=== PATIENT | male | born 1930 | race Caucasian/White ===

== ENCOUNTER 2017-03-26 12:03 | Emergency (ER) | payer MEDICARE, OTHER ==
[2017-03-26 13:12] LABS: Hematocrit 36.1 % (42.0-52.0); Hemoglobin 11.7 gm/dL (13.5-18.0); Mean Cell Volume 91.6 fl (78-100); Mean Corpuscular Hemoglobin 29.7 pg (27-31); Mean Corpuscular Hgb Conc 32.4 g/dl (32-36); Mean Platelet Volume 10.7 fl (6.0-9.5); Platelet Count 166 K/mm3 (150-450); Red Blood Count 3.94 M/mm3 (4.7-6.0); Red Cell Distribution Width 14.2 % (11.5-14.0); White Blood Count 6.3 K/mm3 (4.0-10.5)
[2017-03-26 13:33] LABS: ALT 15 U/L (19-67); AST 21 U/L (0-48); Albumin * 3.2 gm/dl (3.4-5.0); Alkaline Phosphatase * 124 U/L (50-170); Anion Gap 8.5 mmol/L (6.8-13.8); BNP * 1388 pg/mL (5-650); BUN/Creatinine Ratio 16.3 (9.0-21.6); Bilirubin, Total 1.3 mg/dL (0.0-1.1); Blood Urea Nitrogen 25 mg/dL (6-23); Ca. Corrected For Albumin 9.1 mg/dL (8.4-10.2); Calcium * 8.8 mg/dL (7.9-10.9); Carbon Dioxide 34.8 mmol/L (24-32.6); Chloride 100 mmol/L (97-106); Glucose * 116 mg/dL (70-110); Potassium 3.3 mmol/L (3.4-4.6); Sodium 140 mmol/L (132-142); Troponin I Less than 0.017 ng/ml (0.00-0.10)
--- NOTE | 2017-03-26 13:33 | ERNOTE ---
Dyspnea - General Presenting Symptoms: shortness of breath Time Seen by Provider: 03/26/17 12:54 Source: patient Exam Limitations: no limitations - Immun/Allergies/Home Medications Immunizations: IMMUNIZATION HX Immunizations Up to Date Yes History of Influenza Vaccine Yes Hx Pneumococcal Vaccination Yes Allergies/Adverse Reactions: Allergies Penicillins Allergy (Verified 03/26/17 12:19) adhesive tape Adverse Reaction (Verified 03/26/17 12:19) Home Medications: HOME MEDICATIONS Allopurinol [Zyloprim (Allopurinol)] 100 mg PO DAILY 05/23/16 [Last Taken Unknown] Aspirin [Aspirin EC] 81 mg PO DAILY 05/23/16 [Last Taken Unknown] Carvedilol [Coreg] 3.125 mg PO BID 05/23/16 [Last Taken Unknown] Cholecalciferol [Vitamin D] 1,000 unit PO DAILY 05/23/16 [Last Taken Unknown] Cyanocobalamin [Vitamin B-12] 1,000 mcg PO DAILY 05/23/16 [Last Taken Unknown] Docusate Sodium [Colace] 100 mg PO DAILY PRN 05/23/16 [Last Taken Unknown] Ferrous Sulfate [Iron Supplement] 325 mg PO DAILY 05/23/16 [Last Taken Unknown] Finasteride [Proscar] 5 mg PO DAILY 05/23/16 [Last Taken Unknown] Furosemide [Lasix] 40 mg PO BID 05/23/16 [Last Taken Unknown] Magnesium Oxide [Magnesium] 400 mg PO DAILY 05/23/16 [Last Taken Unknown] Metolazone [Zaroxolyn] 5 mg PO DAILY@1100 05/23/16 [Last Taken Unknown] Midodrine HCl 5 mg PO DAILY 05/23/16 [Last Taken Unknown] Nitroglycerin [Nitrostat] 0.4 mg SL Q5MIN PRN 05/23/16 [Last Taken Unknown] Omeprazole Magnesium [Prilosec Otc] 40 mg PO DAILY 05/23/16 [Last Taken Unknown] Potassium Chloride [Klor-Con 10] 10 meq PO BID 05/23/16 [Last Taken Unknown] Simvastatin [Zocor] 20 mg PO HS 05/23/16 [Last Taken Unknown] Tamsulosin HCl [Flomax] 0.4 mg PO DAILY@1800 05/23/16 [Last Taken Unknown] Triamcinolone Acetonide [Nasacort] 1 spray NS HS 05/23/16 [Last Taken Unknown] Warfarin Sodium [Coumadin] 2.5 mg PO DAILY 05/23/16 [Last Taken Unknown] clonazePAM [Klonopin] 0.5 mg PO DAILY 05/23/16 [Last Taken Unknown] Albuterol Sulfate [Proair Hfa] 2 puff IH Q4H PRN #1 inhaler 03/26/17 [Last Taken Unknown] - History of Present Illness Narrative: Patient is here for a persistent cough he has had for about a month.It is mainly dry, occasionally clear phlegm, denies chest pain, no fever. He gets short of breath with talking, sometimes with walking, has been progressively short of breath for a long time. He has a history of CHF,CAD, no history of COPD. Initiating event: Denies: upper resp illness, out of meds Review of Systems - Review of Systems Constitutional: Absent: recent illness, fever ENT: Absent: nose pain, nose congestion, sore throat Respiratory: Present: See HPI, shortness of breath, cough Cardiology: Absent: chest pain, palpitations Gastrointestinal/Abdominal: Absent: nausea, vomiting, abdominal pain Genitourinary: Present: no symptoms reported Musculoskeletal: Absent: back pain Neurological: Absent: headache, weakness, numbness - Patient's Past Medical History Patient History - Medical: Arthritis, Other Patient History - Cardiac/Respiratory: CHF, Hypertension, Myocardial Infarction , Valvular Heart Disease Patient History - Cancer: No Hx of Cancer Patient History - Surgical Procedures: Cardiac stent, Pacemaker, Other Patient History - Other: None - Social History Living Situations: home Abuse History: No History of abuse Psych History: No pertinent hx Smoking Status: Never smoker Alcohol Use: none Drug Use: none - Immunizations Immunizations Up to Date: Yes Hx Pneumococcal Vaccination: Yes History of Influenza Vaccine: Yes Physical Exam - Physical Exam General Appearance: Present: wd/wn, alert, no apparent distress Eye Exam: Normal inspection: bilateral, PERRL: bilateral Ears, Nose, Throat: Present: normal pharynx Respiratory: Present: no respiratory distress, no accessory muscle use, chest nontender, lungs clear, decreased breath sounds Cardiovascular/Chest: Present: regular rate, rhythm, no murmur Gastrointestinal/Abdominal: Present: nontender Extremity Exam: Present: no edema Neurological Exam: Present: alert, oriented, normal mood/affect Skin Exam: Present: normal color, warm/dry ED Progress - Results and Orders Patient's Lab Results:: I have reviewed the patient's lab results. - Vital Signs Patient's Vital Signs:: I have reviewed the patient's vital signs. Vital Signs: Vital Signs 03/26/17 12:10 Temperature 36.7 C Pulse Rate 73 Respiratory 21 H Rate Blood Pressure 136/69 O2 Sat by Pulse 95 Oximetry - EKG EKG: unchanged from - 05/20/16, other - pacemaker EKG EKG read: Interp. by me - X-Ray X-Ray #1 X-Ray: chest - no acute changes Interpretation: Reviewed by me - Progress/Reassessment Chief Complaint: Dyspnea Progress Note-Subjective: 03/26/17 14:39 explained test results to patient and 03/26/17 15:15 patient not sure whether breathing treatment made a difference, no coughing currently Departure Clinical Impression: Bronchitis - Departure Disposition: Home self-care Condition: Good Instructions: Acute Bronchitis, [id number] Additional Instructions: try the inhaler if you feel like the breathing treatment has helped your cough call your doctor for follow up consider following up with your heart doctor (Dr Linder) as well Referrals: Pop Peterson MD [Primary Care Provider] - Prescriptions: Albuterol Sulfate [Proair Hfa] 2 puff IH Q4H PRN #1 inhaler PRN Reason: Shortness Of Breath
[2017-03-26] MEDS ORDERED: ALBUTEROL SULFATE 2.5 MG/3 ML VIAL.NEB IH ONE (14:39)
[2017-03-26] MEDS ORDERED: ALBUTEROL SULFATE 2.5 MG/0.5 ML VIAL.NEB IH ONE (14:55)
[2017-03-26 15:28] VITALS: BP 124/70
== END 2017-03-26 15:28 | disposition home or self-care (01) ==
LOC: ER 12:03
DX: J20.9 Acute bronchitis, unspecified (principal); M19.90 Unspecified osteoarthritis, unspecified site; I50.9 Heart failure, unspecified; I10 Essential (primary) hypertension; I25.2 Old myocardial infarction

== ENCOUNTER 2017-04-21 19:23 | Emergency (ER) | payer MEDICARE, OTHER ==
--- NOTE | 2017-04-21 20:37 | ERNOTE ---
Lower Extremity HPI - General Lower Extremities Pain: knee: right Time Seen by Provider: 04/21/17 20:11 Source: patient Exam Limitations: no limitations - Immun/Allergies/Home Medications Immunizations: IMMUNIZATION HX Immunizations Up to Date Yes History of Influenza Vaccine Yes Hx Pneumococcal Vaccination Yes Allergies/Adverse Reactions: Allergies Allergy/AdvReac Type Severity Reaction Status Date / Time Penicillins Allergy Verified 04/21/17 19:38 adhesive tape AdvReac Verified 04/21/17 19:38 Home Medications: HOME MEDICATIONS Allopurinol [Zyloprim] 300 mg PO DAILY 04/21/17 [Last Taken Unknown] Aspirin [Aspirin EC] 81 mg PO DAILY 04/21/17 [Last Taken Unknown] Carvedilol [Coreg] 3.125 mg PO BID 04/21/17 [Last Taken Unknown] Doxycycline Hyclate [Vibratab] 100 mg PO DAILY 04/21/17 [Last Taken Unknown] Ferrous Sulfate [Iron] 325 mg PO BID 04/21/17 [Last Taken Unknown] Finasteride [Proscar] 5 mg PO DAILY 04/21/17 [Last Taken Unknown] Furosemide [Lasix] 40 mg PO BID 04/21/17 [Last Taken Unknown] Levothyroxine Sodium [Synthroid] 50 mcg PO DAILY 04/21/17 [Last Taken Unknown] Magnesium Oxide [Magnesium] 400 mg PO BID 04/21/17 [Last Taken Unknown] Metolazone [Zaroxolyn] 5 mg PO 2XW 04/21/17 [Last Taken Unknown] Midodrine HCl 5 mg PO BID 04/21/17 [Last Taken Unknown] Multivitamin [One Daily Multivitamin] 1 each PO DAILY 04/21/17 [Last Taken Unknown] Nitroglycerin [Nitrostat] 0.4 mg SL Q5MIN PRN 04/21/17 [Last Taken Unknown] Omeprazole Magnesium [Prilosec Otc] 20 mg PO DAILY 04/21/17 [Last Taken Unknown] Polyethylene Glycol 3350 [Miralax] 17 gm PO HS 04/21/17 [Last Taken Unknown] Potassium Chloride [Klor-Con M10] 10 meq PO BID 04/21/17 [Last Taken Unknown] Potassium Chloride [Klor-Con M10] 20 meq PO DAILY 04/21/17 [Last Taken Unknown] Simvastatin [Zocor] 20 mg PO HS 04/21/17 [Last Taken Unknown] Tamsulosin HCl [Flomax] 0.4 mg PO DAILY 04/21/17 [Last Taken Unknown] Triamcinolone Acetonide [Nasacort] 1 spray NS HS 04/21/17 [Last Taken Unknown] Warfarin Sodium [Coumadin] 4 mg PO DAILY 04/21/17 [Last Taken Unknown] clonazePAM [Klonopin] 0.25 mg PO DAILY 04/21/17 [Last Taken Unknown] clonazePAM [Klonopin] 0.5 mg PO HS 04/21/17 [Last Taken Unknown] - History of Present Illness Narrative: Pt states he has had problems with infection in his right knee 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 He has been on prophylactic doxcycline since. Lately it has been bothering him more and he saw his PCP approx one month ago and was placed on clindamycin for 10 days in addition to his doxycycline. He remains on doxycycline and today he suddenly had pain in his leg and knee and redness to his knee and front of his leg. He has trouble even bearing weight since this afternoon. Occurred: this afternoon Method of Injury: Reports: unknown Modifying Factors - (Worsens): Reports: movement - weight bearing Associated Symptoms: Reports: unable to bear weight Prior Treament: Reports: recently seen, treated by physician - one month ago Review of Systems - Review of Systems Constitutional: Absent: recent illness, fever, chills, diaphoresis EYE: Present: no symptoms reported ENT: Present: no symptoms reported Respiratory: Absent: shortness of breath Cardiology: Absent: chest pain Gastrointestinal/Abdominal: Absent: nausea Genitourinary: Present: no symptoms reported Musculoskeletal: Present: See HPI. Absent: back pain Skin: Present: See HPI, change in color Neurological: Absent: numbness, tingling Endocrine: Absent: excessive sweating, flushing Hematologic/Lymphatic: Present: no symptoms reported Psych: Present: no symptoms reported - Patient's Past Medical History Patient History - Medical: Arthritis, Other - "Infection in right knee" Patient History - Cardiac/Respiratory: CHF, Hypertension, Myocardial Infarction , Valvular Heart Disease Patient History - Cancer: No Hx of Cancer Patient History - Surgical Procedures: Cholecystectomy, Cardiac stent, Pacemaker , Total Knee Replacement, Other Patient History - Other: None - Social History Living Situations: home Abuse History: No History of abuse Psych History: No pertinent hx Smoking Status: Never smoker Alcohol Use: none Drug Use: none - Immunizations Immunizations Up to Date: Yes Hx Pneumococcal Vaccination: Yes History of Influenza Vaccine: Yes Physical Exam - Physical Exam General Appearance: Present: wd/wn, alert, no apparent distress Head Exam: Present: normal inspection, no evidence of injury Eye Exam: Normal inspection: bilateral Neck: Present: normal inspection, supple Respiratory: Present: no respiratory distress, no accessory muscle use Back Exam: Present: normal inspection, no CVA tenderness, no vertebral tenderness Extremity Exam: Present: normal except - - right knee, decreased range of motion - of right knee, joint redness - mild erythema in the sup/lat corner of the right knee, joint swelling - Joint effusion appears to be present, extremity edema - +1 right leg, other - right leg from mid thigh to ankle is much warmer than left leg Skin Exam: Present: other - mild erythema to left anterior leg without sharp boarders ED Progress - Results and Orders Patient's Lab Results:: I have reviewed the patient's lab results. Results and Orders: Laboratory Tests 04/21/17 04/21/17 04/21/17 20:39 20:39 20:39 WBC 7.1 Hgb 12.0 L Hct 37.7 L Plt Count 168 Neutrophils % 79.3 H ESR 41 H D-Dimer C-Reactive Prot, Quant 4.6 H 04/21/17 20:39 WBC Hgb Hct Plt Count Neutrophils % ESR D-Dimer 5.31 H C-Reactive Prot, Quant - Vital Signs Patient's Vital Signs:: I have reviewed the patient's vital signs. Vital Signs: Vital Signs 04/21/17 19:31 Temperature 37.0 C Pulse Rate 77 Respiratory 18 Rate Blood Pressure 131/70 O2 Sat by Pulse 97 Oximetry - X-Ray X-Ray #1 X-Ray: knee Interpretation: Reviewed by me X-ray Comments: IMPRESSION: NO ACUTE OSSEOUS PATHOLOGY IDENTIFIED. SOME LUCENCY ABOUT THE TIBIAL COMPONENT OF THE PROSTHESIS NONSPECIFIC. FOLLOW-UP CLINICALLY INDICATED. Electronically signed by Ward Mcdaniel M.D.. - Progress/Reassessment Chief Complaint: Lower Extremity Pain/ Injury Progress Note-Subjective: 04/22/17 00:29 04/21/17 22:45 Spoke with Kemal Hein PA-C orthopedics he feels that there is nothing more we could do for him here as he has already been referred to the [facility]. 22:50 Called the [facility], they will call me back 23:[address] Kalee Renee Orthopedics at [facility], she would like to see the x-rays and will call me back. 00:01 Received call back from Dr. Renee she would like to see the patient tonight. Transfer arrangements being made. 00:25 Spoke to the ED physician at [facility] as he will initially accept the patient he agrees with transfer. 00:35 Pt left the ED per [facility] ambulance in stable and satisfactory condition Departure Clinical Impression: Septic joint of right knee joint Qualifiers: Septic arthritis organism: due to unspecified organism Qualified Code(s): M00.9 - Pyogenic arthritis, unspecified - Departure Disposition: [facility] Condition: Fair Referrals: Pop Peterson MD [Primary Care Provider] -
[2017-04-21 20:39] LABS: Hematocrit 37.7 % (42.0-52.0); Mean Cell Volume 91.5 fl (78-100); Mean Corpuscular Hemoglobin 29.1 pg (27-31); Mean Corpuscular Hgb Conc 31.8 g/dl (32-36); Mean Platelet Volume 11.8 fl (6.0-9.5); Neutrophil # 5.6 K/mm3 (1.3-6.0); Neutrophil % 79.3 % (42-75.0); Platelet Count 168 K/mm3 (150-450); Red Blood Count 4.12 M/mm3 (4.7-6.0); Red Cell Distribution Width 14.6 % (11.5-14.0); White Blood Count 7.1 K/mm3 (4.0-10.5)
[2017-04-22 00:08] VITALS: BP 123/74
== END 2017-04-22 00:39 | disposition short-term general hospital (02) ==
LOC: ER 19:23
DX: M00.9 Pyogenic arthritis, unspecified (principal); M19.90 Unspecified osteoarthritis, unspecified site; I50.9 Heart failure, unspecified; I10 Essential (primary) hypertension; I25.2 Old myocardial infarction; Z89.9 Acquired absence of limb, unspecified

== ENCOUNTER 2017-05-04 18:54 | Emergency (ER) | payer MEDICARE, OTHER ==
[2017-05-04 19:06] VITALS: BP 114/47
== END 2017-05-04 19:12 | disposition left against medical advice (07) ==
LOC: ER 18:54
DX: Z53.21 Procedure and treatment not carried out due to patient leaving prior to being seen by health care provider (principal)

== ENCOUNTER 2017-08-04 09:31 | Emergency (ER) | payer MEDICARE, OTHER ==
[2017-08-04] MEDS ORDERED: ASPIRIN 81 MG TAB.CHEW PO ONE (09:48)
--- NOTE | 2017-08-04 09:53 | ERNOTE ---
Chest Pain/Cardiac HPI Chief Complaint: Chest Pain Time Seen by Provider: 08/04/17 09:42 Source: patient Exam Limitations: no limitations Immunizations: IMMUNIZATION HX Immunizations Up to Date Yes History of Influenza Vaccine Yes Hx Pneumococcal Vaccination Yes Allergies/Adverse Reactions: Allergies Penicillins Allergy (Verified 08/04/17 09:48) adhesive tape Adverse Reaction (Verified 08/04/17 09:48) Home Medications: HOME MEDICATIONS Allopurinol [Zyloprim] 300 mg PO DAILY 04/21/17 [Last Taken Unknown] Aspirin [Aspirin EC] 81 mg PO DAILY 04/21/17 [Last Taken Unknown] Carvedilol [Coreg] 3.125 mg PO BID 04/21/17 [Last Taken Unknown] Doxycycline Hyclate [Vibratab] 100 mg PO DAILY 04/21/17 [Last Taken Unknown] Ferrous Sulfate [Iron] 325 mg PO BID 04/21/17 [Last Taken Unknown] Finasteride [Proscar] 5 mg PO DAILY 04/21/17 [Last Taken Unknown] Furosemide [Lasix] 40 mg PO BID 04/21/17 [Last Taken Unknown] Levothyroxine Sodium [Synthroid] 50 mcg PO DAILY 04/21/17 [Last Taken Unknown] Magnesium Oxide [Magnesium] 400 mg PO BID 04/21/17 [Last Taken Unknown] Metolazone [Zaroxolyn] 5 mg PO 2XW 04/21/17 [Last Taken Unknown] Midodrine HCl 5 mg PO BID 04/21/17 [Last Taken Unknown] Multivitamin [One Daily Multivitamin] 1 each PO DAILY 04/21/17 [Last Taken Unknown] Nitroglycerin [Nitrostat] 0.4 mg SL Q5MIN PRN 04/21/17 [Last Taken Unknown] Omeprazole Magnesium [Prilosec Otc] 40 mg PO DAILY 04/21/17 [Last Taken Unknown] Polyethylene Glycol 3350 [Miralax] 17 gm PO HS 04/21/17 [Last Taken Unknown] Potassium Chloride [Klor-Con M10] 10 meq PO BID 04/21/17 [Last Taken Unknown] Potassium Chloride [Klor-Con M10] 20 meq PO DAILY@1200 04/21/17 [Last Taken Unknown] Simvastatin [Zocor] 20 mg PO HS 04/21/17 [Last Taken Unknown] Tamsulosin HCl [Flomax] 0.4 mg PO DAILY 04/21/17 [Last Taken Unknown] Triamcinolone Acetonide [Nasacort] 1 spray NS HS 04/21/17 [Last Taken Unknown] Warfarin Sodium [Coumadin] 4 mg PO DAILY 04/21/17 [Last Taken Unknown] clonazePAM [Klonopin] 0.25 mg PO DAILY@1200 04/21/17 [Last Taken Unknown] clonazePAM [Klonopin] 0.5 mg PO HS 04/21/17 [Last Taken Unknown] Cephalexin [Keflex] 500 mg PO TID 06/25/17 [Last Taken Unknown] Cholecalciferol (Vitamin D3) [Vitamin D3] 2,000 unit PO DAILY 06/25/17 [Last Taken Unknown] Montelukast Sodium [Singulair] 10 mg PO DAILY 06/25/17 [Last Taken Unknown] Narrative: Patient states that he's been having increased indigestion, he notices a fullness in the lower chest area after eating that is resolved by belching. He denies any neck or arm or jaw pain or diaphoresis, however he was concerned because he has had open heart surgery and cardiac stents placed in the past. Symptoms have been going on for approximately a week he states. Timing: intermittent Severity/Quality: mild, ingestion - actually indigestion Location: central Chest Pain Radiation: no radiation Activities at Onset: other - eating Modifying Factors - Improves: Present: other - belching Modifying Factors - Worsens: Present: nothing Nitro Today/Relief: no nitro taken today Aspirin Treatment Today: 81 mg x 4, provided by ED Associated Symptoms: Present: denies symptoms Prior Chest Pain/Cardiac Workup: Reports: prior chest pain Review of Systems - Review of Systems Constitutional: Present: See HPI EYE: Present: no symptoms reported ENT: Present: no symptoms reported Respiratory: Present: no symptoms reported Cardiology: Present: See HPI Gastrointestinal/Abdominal: Present: no symptoms reported Genitourinary: Present: no symptoms reported Musculoskeletal: Present: no symptoms reported Skin: Present: no symptoms reported Neurological: Present: no symptoms reported Endocrine: Present: no symptoms reported Hematologic/Lymphatic: Present: no symptoms reported Psych: Present: no symptoms reported - Patient's Past Medical History Patient History - Medical: Arthritis, Other Patient History - Cardiac/Respiratory: Coronary Heart Disease, CHF, Hypertension , Myocardial Infarction, Valvular Heart Disease Patient History - Cancer: No Hx of Cancer Patient History - Surgical Procedures: Angioplasty, Cholecystectomy, Coronary Bypass Surgery, Cardiac stent, Pacemaker, Total Knee Replacement, Other, Orthopedic Patient History - Other: None - Social History Abuse History: No History of abuse Psych History: No pertinent hx Smoking Status: Former smoker - Immunizations Immunizations Up to Date: Yes Hx Pneumococcal Vaccination: Yes History of Influenza Vaccine: Yes Physical Exam - Physical Exam General Appearance: Present: wd/wn, alert, no apparent distress Eye Exam: Normal inspection: bilateral, PERRL: bilateral Ears, Nose, Throat: Present: normal ENT inspection, H, normal pharynx Neck: Present: normal inspection, nontender Respiratory: Present: no respiratory distress, normal breath sounds, no accessory muscle use, chest nontender, lungs clear Cardiovascular/Chest: Present: regular rate, rhythm, no murmur, normal peripheral pulses Gastrointestinal/Abdominal: Present: normal bowel sounds, nontender, nondistended, soft, no organomegaly Rectal Exam: Present: deferred Back Exam: Present: normal inspection, normal range of motion Extremity Exam: Present: normal inspection, non-tender, no edema, normal range of motion Neurological Exam: Present: alert, oriented, normal mood/affect Skin Exam: Present: normal color, warm/dry Lymphatic Exam: Present: no adenopathy ED Progress - Results and Orders Patient's Lab Results:: I have reviewed the patient's lab results. - Vital Signs Patient's Vital Signs:: I have reviewed the patient's vital signs. Vital Signs: Vital Signs 08/04/17 09:32 Temperature 36.3 C L Pulse Rate 80 Respiratory 14 Rate Blood Pressure 140/71 O2 Sat by Pulse 100 Oximetry - EKG EKG: other - paced rhythm unchanged from previous EKG read: Interp. 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 I'm wondering about possible bacterial imbalance in his GI tract because of the chronic use of antibiotics. Previous to this regimen he is on doxycycline and clindamycin, however the clindamycin was stopped approximately 6 weeks ago in favor of cephalexin. I'm going to suggest that the patient go on a probiotic to help ensure good bacterial balance his GI tract. Patient was given information for a reasonable probiotic that he can buy at his pharmacy. Departure Clinical Impression: Indigestion - Departure Disposition: Home self-care Condition: Good Instructions: Indigestion, [id number] Additional Instructions: Discuss a good probiotic with her pharmacist at [facility] Referrals: Pop Peterson MD [Primary Care Provider] -
[2017-08-04] MEDS ORDERED: ASPIRIN 81 MG TAB.CHEW ONE (10:02)
[2017-08-04 10:17] LABS: Hematocrit 39.4 % (42.0-52.0); Hemoglobin 12.4 gm/dL (13.5-18.0); Mean Cell Volume 89.7 fl (78-100); Mean Corpuscular Hemoglobin 28.2 pg (27-31); Mean Corpuscular Hgb Conc 31.5 g/dl (32-36); Mean Platelet Volume 12.5 fl (6.0-9.5); Platelet Count 139 K/mm3 (150-450); Red Blood Count 4.39 M/mm3 (4.7-6.0); Red Cell Distribution Width 15.6 % (11.5-14.0); White Blood Count 5.4 K/mm3 (4.0-10.5)
[2017-08-04 10:19] LABS: Prothrombin Time (Patient) 20.3 Seconds (9.0-11.0)
[2017-08-04 10:20] LABS: Total Cells Counted 100
[2017-08-04 10:31] LABS: ALT 32 U/L (19-67); AST 39 U/L (0-48); Albumin * 3.4 gm/dl (3.4-5.0); Alkaline Phosphatase * 137 U/L (50-170); Anion Gap 8.9 mmol/L (6.8-13.8); BUN/Creatinine Ratio 21.7 (9.0-21.6); Bilirubin, Total 1.7 mg/dL (0.0-1.1); Blood Urea Nitrogen 31 mg/dL (6-23); Ca. Corrected For Albumin 9.6 mg/dL (8.4-10.2); Calcium * 9.4 mg/dL (7.9-10.9); Carbon Dioxide 34.6 mmol/L (24-32.6); Chloride 100 mmol/L (97-106); Glucose * 174 mg/dL (70-110); Potassium 3.5 mmol/L (3.4-4.6); Sodium 140 mmol/L (132-142); Total Protein 7.2 gm/dL (6.2-8.2)
[2017-08-04 10:32] LABS: Troponin I Less than 0.017 ng/ml (0.00-0.10)
[2017-08-04 10:33] LABS: Band 4 % (0-2.0); Lymphocyte 9 % (20-51); Monocyte 3 % (0-9); Neutrophil 84 % (42-75); Neutrophil # 4.5 K/mm3 (1.3-6.0)
[2017-08-04 10:34] LABS: Platelet Estimate Normal (NORMAL); RBC Morphology Normal (NORMAL)
[2017-08-04 10:35] LABS: INR 2.02 INR (0.90-1.10)
[2017-08-04 11:04] VITALS: BP 144/80
== END 2017-08-04 11:18 | disposition home or self-care (01) ==
LOC: ER 09:31
DX: K30 Functional dyspepsia (principal); Z95.5 Presence of coronary angioplasty implant and graft; I25.2 Old myocardial infarction; Z87.891 Personal history of nicotine dependence; Z95.0 Presence of cardiac pacemaker; R07.89 Other chest pain

== ENCOUNTER 2017-10-19 12:06 | Emergency (ER) | payer MEDICARE, OTHER ==
[2017-10-19] MEDS ORDERED: METOCLOPRAMIDE HCL 5 MG/ML VIAL IV ONE (12:33)
[2017-10-19] MEDS ORDERED: ORPHENADRINE CITRATE 30 MG/ML VIAL IV ONE (12:33)
[2017-10-19] MEDS ORDERED: diphenhydrAMINE HCL 50 MG/ML VIAL IV ONE (12:33)
[2017-10-19] MEDS ORDERED: diphenhydrAMINE HCL 50 MG/ML VIAL ONE (12:45)
[2017-10-19] MEDS ORDERED: ORPHENADRINE CITRATE 30 MG/ML VIAL ONE (12:45)
[2017-10-19] MEDS ORDERED: METOCLOPRAMIDE HCL 5 MG/ML VIAL ONE (12:46)
[2017-10-19 12:47] LABS: Hematocrit 45.6 % (42.0-52.0); Hemoglobin 14.7 gm/dL (13.5-18.0); Mean Cell Volume 90.5 fl (78-100); Mean Corpuscular Hemoglobin 29.2 pg (27-31); Mean Corpuscular Hgb Conc 32.2 g/dl (32-36); Mean Platelet Volume 12.5 fl (6.0-9.5); Neutrophil # 5.8 K/mm3 (1.3-6.0); Neutrophil % 79.8 % (42-75.0); Platelet Count 181 K/mm3 (150-450); Red Blood Count 5.04 M/mm3 (4.7-6.0); Red Cell Distribution Width 16.1 % (11.5-14.0); White Blood Count 7.3 K/mm3 (4.0-10.5)
[2017-10-19 13:02] LABS: Anion Gap 6.2 mmol/L (6.8-13.8); BUN/Creatinine Ratio 17.6 (9.0-21.6); Bilirubin, Total 1.3 mg/dL (0.0-1.1); Ca. Corrected For Albumin 9.5 mg/dL (8.4-10.2); Calcium * 9.8 mg/dL (7.9-10.9); Carbon Dioxide 37.8 mmol/L (24-32.6); Magnesium 1.9 mg/dL (1.2-2.8); Total Protein 8.4 gm/dL (6.2-8.2)
[2017-10-19] MEDS ORDERED: POTASSIUM CHLORIDE 20 MEQ TABLET.SA PO ONE (13:33)
--- NOTE | 2017-10-19 13:52 | ERNOTE ---
Headache ER HPI - General Presenting Symptoms: headache Time Seen by Provider: 10/19/17 12:26 Source: patient Exam Limitations: no limitations - Immun/Allergies/Home Medications Immunizations: IMMUNIZATION HX Immunizations Up to Date Yes History of Influenza Vaccine Yes Hx Pneumococcal Vaccination Yes Allergies/Adverse Reactions: Allergies Penicillins Allergy (Verified 10/19/17 12:24) adhesive tape Adverse Reaction (Verified 10/19/17 12:24) Home Medications: HOME MEDICATIONS Allopurinol [Zyloprim] 300 mg PO DAILY 04/21/17 [Last Taken Unknown] Aspirin [Aspirin EC] 81 mg PO DAILY 04/21/17 [Last Taken Unknown] Carvedilol [Coreg] 3.125 mg PO BID 04/21/17 [Last Taken Unknown] Doxycycline Hyclate [Vibratab] 100 mg PO DAILY 04/21/17 [Last Taken Unknown] Ferrous Sulfate [Iron] 325 mg PO BID 04/21/17 [Last Taken Unknown] Finasteride [Proscar] 5 mg PO DAILY 04/21/17 [Last Taken Unknown] Furosemide [Lasix] 40 mg PO BID 04/21/17 [Last Taken Unknown] Levothyroxine Sodium [Synthroid] 50 mcg PO DAILY 04/21/17 [Last Taken Unknown] Magnesium Oxide [Magnesium] 400 mg PO BID 04/21/17 [Last Taken Unknown] Metolazone [Zaroxolyn] 5 mg PO 2XW 04/21/17 [Last Taken Unknown] Midodrine HCl 5 mg PO BID 04/21/17 [Last Taken Unknown] Multivitamin [One Daily Multivitamin] 1 each PO DAILY 04/21/17 [Last Taken Unknown] Nitroglycerin [Nitrostat] 0.4 mg SL Q5MIN PRN 04/21/17 [Last Taken Unknown] Omeprazole Magnesium [Prilosec Otc] 40 mg PO DAILY 04/21/17 [Last Taken Unknown] Polyethylene Glycol 3350 [Miralax] 17 gm PO HS 04/21/17 [Last Taken Unknown] Potassium Chloride [Klor-Con M10] 10 meq PO BID 04/21/17 [Last Taken Unknown] Potassium Chloride [Klor-Con M10] 20 meq PO DAILY@1200 04/21/17 [Last Taken Unknown] Simvastatin [Zocor] 20 mg PO HS 04/21/17 [Last Taken Unknown] Tamsulosin HCl [Flomax] 0.4 mg PO DAILY 04/21/17 [Last Taken Unknown] Triamcinolone Acetonide [Nasacort] 1 spray NS HS 04/21/17 [Last Taken Unknown] Warfarin Sodium [Coumadin] 4 mg PO DAILY 04/21/17 [Last Taken Unknown] clonazePAM [Klonopin] 0.25 mg PO DAILY@1200 04/21/17 [Last Taken Unknown] clonazePAM [Klonopin] 0.5 mg PO HS 04/21/17 [Last Taken Unknown] Cephalexin [Keflex] 500 mg PO TID 06/25/17 [Last Taken Unknown] Cholecalciferol (Vitamin D3) [Vitamin D3] 2,000 unit PO DAILY 06/25/17 [Last Taken Unknown] Montelukast Sodium [Singulair] 10 mg PO DAILY 06/25/17 [Last Taken Unknown] Metaxalone [Skelaxin] 400 mg PO BID PRN #20 tablet 10/19/17 [Last Taken Unknown] - History of Present Illness Narrative: Patient presents with a headache that is been ongoing for approximately 5 days. He states that it hurts to turn his head in any direction and has palpable tenderness at the occipital region of the scalp. Timing of Headache: gradual Quality: Present: other - spasm-like Severity Maximum: Present: moderate Severity-Currently: Present: moderate Headache frequency: Present: no recent headache Modifying Factors - (Improves): Reports: rest Exacerbated by:: Reports: movement Prior Treament: Reports: recently seen Review of Systems - Review of Systems Constitutional: Present: See HPI EYE: Present: no symptoms reported ENT: Present: no symptoms reported Respiratory: Present: no symptoms reported Cardiology: Present: no symptoms reported Gastrointestinal/Abdominal: Present: no symptoms reported Genitourinary: Present: no symptoms reported Musculoskeletal: Present: muscle stiffness - cervical paraspinal and occipitalis and frontalis muscles Skin: Present: no symptoms reported Neurological: Present: See HPI Endocrine: Present: no symptoms reported Hematologic/Lymphatic: Present: no symptoms reported Psych: Present: no symptoms reported - Patient's Past Medical History Patient History - Medical: Arthritis, Hypothyroidism, Other Patient History - Cardiac/Respiratory: Atrial Fibrillation, CHF, Hypertension, Myocardial Infarction, Valvular Heart Disease Patient History - Cancer: No Hx of Cancer Patient History - Surgical Procedures: Cholecystectomy, Cardiac stent, Pacemaker , Total Knee Replacement, Other, Orthopedic, Other, Orthopedic Patient History - Other: None - Social History Living Situations: assisted living Abuse History: No History of abuse Psych History: No pertinent hx Smoking Status: Never smoker Have you smoked in the past 12 months: No Do you dip or chew tobacco: No Alcohol Use: rarely Drug Use: none - Immunizations Immunizations Up to Date: Yes Hx Pneumococcal Vaccination: Yes History of Influenza Vaccine: Yes Physical Exam - Physical Exam General Appearance: Present: wd/wn, alert, moderate distress Head Exam: Present: tenderness - palpation along the occipitalis, frontalis and galea aponeurotica Eye Exam: Normal inspection: bilateral, PERRL: bilateral Ears, Nose, Throat: Present: normal ENT inspection, H, normal pharynx Neck: Present: other - diminished range of motion secondary to pain and spasm Respiratory: Present: no respiratory distress, normal breath sounds, no accessory muscle use, chest nontender, lungs clear Cardiovascular/Chest: Present: regular rate, rhythm, no murmur, normal peripheral pulses Gastrointestinal/Abdominal: Present: normal bowel sounds, nontender, nondistended, soft, no organomegaly Rectal Exam: Present: deferred Back Exam: Present: normal inspection, normal range of motion Extremity Exam: Present: normal inspection, non-tender, no edema, normal range of motion Neurological Exam: Present: alert, oriented, normal mood/affect Skin Exam: Present: normal color, warm/dry Lymphatic Exam: Present: no adenopathy ED Progress - Results and Orders Patient's Lab Results:: I have reviewed the patient's lab results. - Vital Signs Patient's Vital Signs:: I have reviewed the patient's vital signs. Vital Signs: Vital Signs 10/19/17 10/19/17 12:18 13:27 Temperature 36.2 C L Pulse Rate 80 76 Respiratory 14 17 Rate Blood Pressure 119/69 131/73 O2 Sat by Pulse 96 94 Oximetry - CT/Ultrasound CT/Ultrasound Narrative: CT the head reviewed by me - Progress/Reassessment Chief Complaint: Headache Progress:: Improved Plan - Plan Plan: Patient was incredibly sensitive to Reglan and Benadryl with Norflex for the headache and struck her in the ER for approximately 1 hour until he was more stable on his feet. Patient states that he is very sensitive to medications and as this appears to be a tension headache I would like to add a muscle relaxer and perhaps the safest would be Skelaxin and he can take Tylenol with it. As the patient is over anticoagulated on his Coumadin I am reluctant to give him a nonsteroidal and I believe both Fioricet and Esgic might be more than he can handle. Patient does feel better and is discharged in stable condition. Departure Clinical Impression: Tension headache - Departure Disposition: Home self-care Condition: Poor Instructions: Tension Headache, [id number] Additional Instructions: Take Tylenol with her Skelaxin for the headache Referrals: Pop Peterson MD [Primary Care Provider] - Prescriptions: Metaxalone [Skelaxin] 400 mg PO BID PRN #20 tablet PRN Reason: Headache
[2017-10-19] MEDS ORDERED: POTASSIUM CHLORIDE 20 MEQ TABLET.SA ONE (13:57)
[2017-10-19 15:15] VITALS: BP 127/75
== END 2017-10-19 16:55 | disposition home or self-care (01) ==
LOC: ER 12:06
DX: G44.209 Tension-type headache, unspecified, not intractable (principal); Z79.01 Long term (current) use of anticoagulants
CPT/HCPCS: 36415; 70450; 80053; 83735; 85025; 85610; 96374; 99284; G0463